=== PATIENT | male | born 1960 | race Caucasian/White ===

== ENCOUNTER → 2023-10-24 07:50 | Outpatient (CLI) | payer BC, SELFPAY ==
--- NOTE | ~2023-10-24 | MR_ITS ---
MRI of the lumbar spine Clinical History: Back pain Technique: Axial T2-weighted images, and sagittal T1-weighted, T2-weighted, and T2 fat-sat images wer e acquired. Findings: There is no fracture of the lumbar spine. There is 3 mm retrolisthesis of L2 over L3. No grijalva spicious bone marrow signal abnormality seen. At L1-L2, there is moderate to advanced degenerative disc narrowing. There is mild disc bulge and mod erate facet arthropathy. No central canal stenosis or definite neural foraminal narrowing. At L2-L3, there is moderate to advanced degenerative disc narrowing. There is mild disc bulge and mod erate facet arthropathy. No central canal stenosis. There is mild bilateral neural foraminal narrowin g. At L3-L4, there is minimal disc bulge with moderate facet arthropathy. No central canal stenosis or d efinite neural foraminal narrowing. At L4-L5, there is mild disc bulge and moderate to advanced facet arthropathy. No central canal steno sis. There is moderate to advanced right neural foraminal narrowing, and mild to moderate left neural foraminal narrowing. At L5-S1, there is mild disc bulge and moderate facet arthropathy. No central canal stenosis. There i s severe right neural foraminal narrowing, and mild to moderate left neural foraminal narrowing. Paravertebral soft tissues are unremarkable. Impression: [id number] degenerative spondylosis, as detailed above. 3 mm retrolisthesis of L2 over L3. Reviewed, dictated and finalized at [facility]. COORDINATOR Impression: [id number] degenerative spondylosis, as detailed above. 3 mm retrolisthesis of L2 over L3.
== END ==
PROVIDERS: PCP Family Medicine Sports Medicine; Visit Provider Nurse Practitioner
DX: M51.36 Other intervertebral disc degeneration, lumbar region (principal); M47.816 Spondylosis without myelopathy or radiculopathy, lumbar region; G89.29 Other chronic pain
CPT/HCPCS: 72148

== ENCOUNTER → 2023-10-24 08:12 | Outpatient (CLI) | payer BC, SELFPAY ==
--- NOTE | ~2023-10-24 | MR_ITS ---
MRI of the right shoulder Technique: Axial proton-density fat-sat images, coronal proton density fat-sat and T2 fat-sat images, and sagittal T1-weighted and T2 fat-sat images were acquired. Clinical History: Biceps tendinitis Findings: There is severe degenerative change of the AC joint, with prominent bony productive change of the distal clavicle, as well as mild bony productive change at the acromion. There is fluid in the joint space. There is mild extrinsic impingement by bony productive change of the distal clavicle on the supraspinatus tendon near the myotendinous junction region. Coracoclavicular, coracoacromial, an d coracohumeral ligaments appear intact. There is a 5 mm low to moderate grade articular surface partial tear at the very anterior, distal sup raspinatus tendon insertion. No high-grade partial or full-thickness tear seen. Infraspinatus tendon is intact, without partial or full-thickness tear. There is mild tendinosis. Subscapularis tendon is intact, with mild tendinosis. Tendon of long head of the biceps is intact. No definite labral tear identified. Inferior glenohumeral ligament is intact. No degenerative change or effusion of the glenohumeral join t. No fluid distention of the subacromial/subdeltoid bursa. No muscle atrophy or edema. Impression: 5 mm low to moderate grade articular surface partial tear at the very anterior, distal supraspinatus tendon insertion. Mild rotator cuff tendinosis. Severe AC joint degenerative change. Reviewed, dictated and finalized at [facility]. TICE COORDINATOR Impression: 5 mm low to moderate grade articular surface partial tear at the very anterior, distal supraspinatus tendon insertion. Mild rotator cuff tendinosis. Severe AC joint degenerative change.
== END ==
PROVIDERS: PCP Family Medicine Sports Medicine; Visit Provider Orthopaedic Surgery
DX: M75.21 Bicipital tendinitis, right shoulder (principal); M77.11 Lateral epicondylitis, right elbow; M75.111 Incomplete rotator cuff tear or rupture of right shoulder, not specified as traumatic; M19.011 Primary osteoarthritis, right shoulder
CPT/HCPCS: 73221

== ENCOUNTER 2024-02-20 08:07 | Outpatient (CLI) | payer BC, SELFPAY ==
--- NOTE | ~2024-02-20 | MR_ITS ---
MRI of the cervical spine Clinical History: Cervicalgia Technique: Axial T2-weighted and gradient images, and sagittal T1-weighted, T2-weighted, and STIR lindsey ges were acquired. Findings: There is no fracture and 5. There is 2-3 mm retrolisthesis of C5 over C6. No significant treva ne marrow signal abnormality seen. At C2-C3, there is no significant disc bulge or herniation. No spinal canal stenosis, cord compressio n, or neural foraminal narrowing. At C3-C4, there is no significant disc bulge or herniation. No spinal canal stenosis, cord compressio n, or neural foraminal narrowing. There is mild bilateral facet arthropathy. At C4-C5, there is mild disc osteophyte complex. There is bilateral facet arthropathy, left worse ana n right. There is left neural foraminal narrowing. Probable minimal right neural foraminal narrowing. No central canal stenosis or cord compression. At C5-C6, there is advanced degenerative disc narrowing, with disc osteophyte complex. There is mild canal stenosis without susanne cord compression. There is bilateral neural foraminal narrowing with mae ateral facet arthropathy. At C6-C7, there is minimal disc bulge. No central canal stenosis or cord compression. Probable minima l bilateral neural foraminal narrowing with mild bilateral facet arthropathy. Paravertebral soft tissues are unremarkable. Impression: Moderate degenerative spondylosis at C5-C6 and C4-C5, as detailed above. Mild degenerative change at the remainder of the cervical spine. Reviewed, dictated and finalized at [facility]. Impression: Moderate degenerative spondylosis at C5-C6 and C4-C5, as detailed above. Mild degenerative change at the remainder of the cervical spine.
--- NOTE | ~2024-02-20 | MR_ITS ---
MRI of the brain Clinical History: Headache Technique: Axial and sagittal T1-weighted images were acquired. These were followed by axial T2-weigh bret, diffusion weighted, gradient, and FLAIR images. Findings: There is no acute infarct, intracranial hemorrhage, or mass lesion. There are mild chronic white matter changes in the periventricular white matter bilaterally. Ventricles and subarachnoid spaces are unremarkable. Orbits are unremarkable. Paranasal sinuses and m astoid air cells are essentially clear. Major intracranial flow voids appear intact. Sagittal midline structures are intact. IMPRESSION: No acute infarct, intracranial hemorrhage, or mass lesion. Mild chronic microvascular ischemic changes. Reviewed, dictated and finalized at location .
== END 2024-02-20 08:08 ==
LOC: GOSHIMG 08:09
PROVIDERS: Visit Provider Family Medicine Sports Medicine
DX: M47.892 Other spondylosis, cervical region (principal); I67.82 Cerebral ischemia; G89.29 Other chronic pain
CPT/HCPCS: 70551; 72141

== ENCOUNTER 2024-08-28 10:05 | Outpatient (CLI) | payer BC, SELFPAY ==
--- NOTE | ~2024-08-28 | MR_ITS ---
EXAMINATION: MRA neck wo con DATE: 08/28/2024 11:17 INDICATION: Headache. Left shoulder pain. TECHNIQUE: Magnetic resonance angiography (MRA) of the neck was performed without intravenous contras t. Sequences included axial 2D-time of flight T1-weighted FSPGR, axial Inhance, and coronal T1-weight ed FSPGR without intravenous contrast. COMPARISON: None. FINDINGS: Right vertebral artery is dominant. There is no significant stenosis of the vertebral arteries. There is 0% stenosis of the proximal right internal carotid artery relative to normal distal artery lumen diameter (NASCET criteria). There is 0% stenosis of the proximal left internal carotid artery relati ve to normal distal artery lumen diameter. IMPRESSION: 1. 0% stenosis of the proximal internal carotid arteries relative to normal distal artery lumen diame ters (NASCET criteria). Reviewed, dictated and finalized at location A. RAL COUNSEL IMPRESSION: 1. 0% stenosis of the proximal internal carotid arteries relative to normal dis lesvia artery lumen diameters (NASCET criteria).
--- NOTE | ~2024-08-28 | MR_ITS ---
MRA HEAD History: Headache Technique: 3D time of flight MRA of the head is performed. Findings: The right and left distal vertebral arteries and the basilar and posterior cerebral arterie s are normal. Right and left distal internal carotid arteries and anterior and middle cerebral arteri es are normal. There is no aneurysm, stenosis, or occlusion. Impression: No occlusion, stenosis, or aneurysm. Reviewed, dictated and finalized at location . ETCAR REPAIRER Impression: No occlusion, stenosis, or aneurysm.
== END 2024-08-28 10:06 | disposition home or self-care (01) ==
LOC: GOSHIMG 10:06
PROVIDERS: Visit Provider Family Medicine Sports Medicine
DX: R51.9 Headache, unspecified (principal); M25.512 Pain in left shoulder; G89.29 Other chronic pain
CPT/HCPCS: 70544; 70547

== ENCOUNTER 2025-07-09 00:13 | Day surgery (SDC) | payer BC, SELFPAY ==
--- OUTSIDE RECORDS SUMMARY | 2025-06-29 05:40 | XMS_ITS ---
Author Organization 1 OF [facility] Address [address] [address] Care Team Providers Care Ladle Liner Name Role Phone Per Garza Primary Care Provider Unavail able Noam Claudia Unavailable [phone] Allergies Allergen (clinical drug ingredient) Drug/Non Drug Allergy documented on EMR Reaction Allergy Type Onset Date Status ciprofloxacin Ciprofloxacin Unknown Drug Allergy Active REASON FOR VISIT ingrown nail Medications Medication SIG (Take, Route, Frequency, Duration) Notes Start Date End Date Status Tamsulosin HCl 0.4 MG Capsule Oral; Duration: 90 Days Acti ve Celecoxib 200 MG Capsule Oral; Duration: 90 Days Active Ciclopirox 8 % Solution 1 application to affected toenails daily. Every weekend, remove medicine with nail malay remover. Topical Once a day; Duration: 120 days 06/29/2025 Active Omeprazole 20 MG Capsule Delayed Release Oral; Duration: 90 Days A ctive Atenolol Active Lisinopril 10 MG Tablet Oral; Duration: 90 Days Active Vital Signs Height 69 in 06/29/2025 Weight 170 lbs 06/29/2025 BMI 25.1 kg/m2 06/29/2025 Encounters Encounter Location Date Provider Diagnosis 1 OF [facility] [address] [address] 06/29/2025 Claudia Santacruz Onychomycosis B35.1 ; Ingrown toenail L60.0 and Pain around toenail, right foot M79.674 Assessments Encounter Date Diagnosis (ICD Code) Assessment Notes Treatment Notes Treatment Clinical Notes Section Notes 06/29/2025 Onychomycosis (ICD-10 - B35.1) Evaluation today included a review of medical history, review of systems, discussion of exam findings, and review of diagnoses and treatment options. I explained that some of the changes to the nail could be residual from his old toenail plate that still needs to grow out. We discussed the option of doing another round of oral antifungal medication. He would like to see how the nail grows out and will call as needed. 06/29/2025 Ingrown toenail (ICD-10 - L60.0) Discussed ingrown toenail condition and explained in detail conservative and surgical options of care including debridement / slant back procedure vs nail avulsion vs matrixectomy. Discussed pros and cons of each procedure including temporary relief vs more permanent relief with matrixectomy procedure but longer healing time. Patient requested only debridement / slant back procedure today w/o local anesthesia. Antibiotic ointment and Band-Aid were applied today. Patient understands this procedure will likely provide only temporary relief and was encouraged to consider avulsion or matrixectomy if condition recurs. 06/29/2025 Pain around toenail, right foot (ICD-10 - M79.674) Plan Of Treatment Medication Medication Name Sig Start Date Stop Date Notes Ciclopirox 8 % Solution 1 application to affected toenails daily. Every weekend, remove medicine with nail malay remover. Topical Once a day; Duration: 120 days 06/29/2025 Treatment Notes Assessment Notes Onychomycosis Evaluation today inc luded a review of medical history, review of systems, discussion of exam findings, and review of diagnoses and treatment options. I explained that some of the changes to the nail could be residual from his old toenail plate that still needs to grow out. We discussed the option of doing another round of oral antifungal medication. He would like to see how the nail grows out and will call as needed. Ingrown toenail Discussed ingrown to enail condition and explained in detail conservative and surgical options of care including debridement / slant back procedure vs nail avulsion vs matrixectomy. Discussed pros and cons of each procedure including temporary relief vs more permanent relief with matrixectomy procedure but longer healing time. Patient requested only debridement / slant back procedure today w/o local anesthesia. Antibiotic ointment and Band-Aid were applied today. Patient understands this procedure will likely provide only temporary relief and was encouraged to consider avulsion or matrixectomy if condition recurs. Next Appt Details Follow Up: prn, Reason: Procedure Notes * Category Sub-Category Detail Notes PALLIATIVE FOOT CARE: Nail debride (95653): Slan t back debridement of the right hallux nail History and Physical Notes * HPI (History of Present Illness) Category Sub-Category Detail Notes Category Not es Primary reason for visit: Recurrent issue: 65 y/o male RTO for an ingrown toenail right hallux medial border. At the last visit a slant back was performed and discussed possible nail avulsion/matrixectomy. Today he reports that there is still pain when in shoes or even with the sheets touching the toe. Patient also states that the nail has some discoloration. SID assisting with visit: HPI/Rooming: Kathi Chart Prep Kathi Examination Category Sub-Category Detail Notes Category Not es General Examination Mental status: Cooperative, Oriented to person, place and time, Mood and affect: normal, Judgement and intellect: normal with appropriate response to questions Shoes today: New Balance tennis s hoes Exam unchanged from prior visit: with no significant changes in appearance or condition of feet, excluding the following findings noted on exam today: There is very minimal white discoloration noted to the left third toenail. There is some residual yellowish-brown discoloration noted to the distal aspect of the right hallux nail. Minimal thickening of the toenail noted. The medial corner of the left hallux nail is incurvated and painful. No surrounding erythema, no drainage, no acute signs of infection. Constitutional / Appearance: No acute di stress , Well nourished, Appropriate personal hygiene Progress Notes * SANCHEZFamiliaDOB:1960 (65 yo M)Acc No.[id number]:06/29/2025 Progress Notes Patient: Familia Naik Provider: Fidencio Santacruz DPM :1960 A ge:65 Y S ex:Male Date:06/29/2025 Address:[address] [place], [place] [id number] Pcp:Per Garza Subjective: * Chief Complaints: * I ngrown nail * HPI: Orquidea Hayes assisting with visit:: Chart Prep Arianna espinoza. HPI/Rooming: Arianna mac reason for visit:: Recurrent issue: [age] y/o male RTO for an ingrown toenail right hallux medial border. At the last visit a slant back was performed and discussed possible nail avulsion/matrixectomy. Today he reports that there is still pain when in shoes or even with the sheets touching the toe. Patient also states that the nail has some discoloration. * Medical History: Arthritis High Blood Pressure High Cholesterol Gastroesophageal reflux disease (GERD) Medical History Verified * Medications: T akingAtenolol Lisinopril 10 MG Tablet Oral Tamsulosin HCl 0.4 MG Capsule Oral Celecoxib 200 MG Capsule Oral Omeprazole 20 MG Capsule Delayed Release Oral Medication List reviewed and reconciled with the patientTaking Atenolol Taking Lisinopril 10 MG Tablet Oral Taking Tamsulosin HCl 0.4 MG Capsule Oral Taking Celecoxib 200 MG Capsule Oral Taking Omeprazole 20 MG Capsule Delayed Release Oral Medication List reviewed and reconciled with the patient * Allergies: C iprofloxacinyesAllergies Verified. Objective: * Vitals: W t:170lbs, Wt-k.11 kg, Ht: 69 in, BMI:25.1Index. * Examination: G eneral Examination: Constitutional / Appearance: N o acute distress , Well nourished, Appropriate personal hygiene. Mental status: C ooperative, Oriented to person, place and time, Mood and affect: normal, Judgement and intellect: normal with appropriate response to questions. Shoes today: N ew Balance tennis shoes. Exam unchanged from prior visit: w ith no significant changes in appearance or condition of feet, excluding the following findings noted on exam today: There is very minimal white discoloration noted to the left third toenail. There is some residual yellowish-brown discoloration noted to the distal aspect of the right hallux nail. Minimal thickening of the toenail noted. The medial corner of the left hallux nail is incurvated and painful. No surrounding erythema, no drainage, no acute signs of infection.. Assessment: * Assessment: 1. O nychomycosis - B35.1 (Primary) 2 . I ngrown toenail - L60.0 3 . P ain around toenail, right foot - M79.134 Plan: * Treatment: 2. I ngrown toenail Notes: Discussed ingrown toenail condition and explained in detail conservative and surgical options of care including debridement / slant back procedure vs nail avulsion vs matrixectomy. Discussed pros and cons of each procedure including temporary relief vs more permanent relief with matrixectomy procedure but longer healing time. Patient requested only debridement / slant back procedure today w/o local anesthesia. Antibiotic ointment and Band-Aid were applied today. Patient understands this procedure will likely provide only temporary relief and was encouraged to consider avulsion or matrixectomy if condition recurs. * Procedures: P ALLIATIVE FOOT CARE:: Nail debride (40476): S lant back debridement of the right hallux nail. * Procedure Codes: 1 1720 DEBRIDE NAIL, 1-5 * Follow Up: p rn Billing Information: * Procedure Codes: 77120 DEBRIDE NAIL, 1-5. * Electronic signature of Jyoti Santacruz DPM on 07/09/2025 at 12:16 AM CDT Sign off status: Pending * Provider: Fidencio Santacruz DPM Date: Generated for Tita doss/Tesfaye/Madhu on: 12:16 AM CDT
[2025-07-02 12:34] VITALS: BMI 26.2
--- NOTE | 2025-07-02 12:47 | PC.NURSE ---
[facility] has started construction of its new state of the art ER which will open Spring 2026. With this, we anticipate parking may be a challenge for some our surgical patients and families. Parking spaces are limited but are available for all Surgical, obstetrics, and ER patients sharing this lot. If you arrive and find you are having a hard time finding a parking space, please note that we understand the challenges, please drive around the hospital and park near Hospital Entrance 1. When you enter this entrance, you can ask a volunteer to direct or take you back to the surgical waiting area to check in. We appreciate everyone?s understanding of these expected challenges while we build for your future. Report to the Outpatient Waiting Room, entrance under the green pavilion located off [address], at time _0745_ on date __. Planned Procedure Time: _0945_.? Time changes happen often and if your time is changed the preop area will call you the afternoon before. - You and your visitor will be asked to self-screen and do not enter if you have any COVID symptoms. Please call surgeon if you need to reschedule. - A mask is optional within the hospital at this time. Patients may have clear liquids (water, carbonated beverages, clear teas, apple juice) until 3 hours prior to surgery with a maximum of 20 ounces. - No food from midnight until time of surgery and no smoking, or chewing tobacco (or any form of nicotine). No chewing gum, candy or mints. Take only the following medications with a SIP of water on the morning of surgery: __Atenolol_ DO NOT STOP ANY OF YOUR OTHER PRESCRIPTION MEDICATIONS PRIOR TO SURGERY EXCEPT THE FOLLOWING Hold all vitamins and supplements for 3 days per anesthesiologist. Medications to discontinue per physician Patient holding Aspirin and Celebrex per Dr's orders. Date to take last dose Please no make-up, nail slovenian, hairspray, perfume, deodorant, or body powder the day of surgery.? No jewelry (including any body piercings) or valuables the day of surgery, leave them at home.? Please take a shower or bath the night before, or the morning of, surgery with an antibacterial soap.? Wear comfortable, loose fitting clothing.? - Jewelry must be removed prior to entering the operating room.? Rings and piercings that are not removed may be cut off. - The hospital will not accept responsibility for valuables.? - Please leave all valuables, including medications, at home the day of surgery. If you are going home after surgery, a licensed bellman driver must drive you home.? - NO public transportation without another adult if you receive anesthesia. - We recommend that an adult stay with you for 24 hours following discharge. - We also recommend that you do not drive, make important decision, drink alcoholic beverages, or take any drugs that were not prescribed by your health care provider for at least 24 hours after your discharge time. Follow any additional instructions given to you from your surgeon. Telephone instructions given to __Tom__and asked if any additional questions and then verbalized understanding. Patient advised to call surgeon office or pre surgery nurse liaison [phone] if any additional questions.
--- NOTE | 2025-07-06 07:36 | PM.HPGS ---
History of Present Illness History of Present Illness Consent: Risks, benefits, and alternatives have been discussed and questions answered. Patient agrees to proceed with procedure. Chief complaint: elevated PSA Narrative: Familia Sanchez is a 65 year old male with elevated PSA: 05/2025: ?Care transferred to Dr. Soria after Dr. Gaona care home ?a. LUTS: Empiric trial Gemtesa -> near retention ?Myrbetriq: too expensive ?Non-compliant with Urocuff and UDS ?b. Elevated PSA: 04/2025: PSA: 4.0 ?mpMRI Prostate: - volume: 20.6gm ?- PI-RADS 4: Right post.-med. TZ @apex ?- PI-RADS 4: Left lat. PZ @ mid prostate Review of Systems Review of Systems: All systems reviewed & are unremarkable except as noted in HPI and below PMFSH Social History Social History Smoking packs per day: 1 Smoking cigarettes per day: 20.0 Years smoked: 35 Smoking pack-years: 35.00 Smoking status: Former smoker Tobacco type: cigarettes Smoking end date: 07/02/17 Alcohol intake: current Drinks per week: 20 Living arrangements: with roommate(s) Spiritual care concerns: No Meds Home Medications and Allergies Home Medications ?Medication ?Instructions ?Recorded ?Confirmed ?Type ascorbic acid (vitamin C) 500 mg 500 mg PO DAILY 07/02/25 07/02/25 History tablet (C-500) aspirin 81 mg tablet,delayed 81 mg PO DAILY 07/02/25 07/02/25 History release (Adult Low Dose Aspirin) atenolol 25 mg tablet 25 mg PO DAILY 07/02/25 07/02/25 History atorvastatin 40 mg tablet 40 mg PO QPM 07/02/25 07/02/25 History celecoxib 200 mg capsule 200 mg PO DAILY 07/02/25 07/02/25 History gabapentin 300 mg capsule 300 mg PO Q8H 07/02/25 07/02/25 History lisinopril 20 mg tablet 40 mg PO DAILY 07/02/25 07/02/25 History multivitamin (Daily Multi-Vitamin 1 tablet PO DAILY 07/02/25 07/02/25 History tablet) omega 9-ocu-gcp-fish oil 1,200 mg 1 cap PO DAILY 07/02/25 07/02/25 History (144 mg-216 mg) capsule (Fish Oil) omeprazole 20 mg capsule,delayed 20 mg PO DAILY 07/02/25 07/02/25 History release tadalafil 5 mg tablet 5 mg PO DAILY 07/02/25 07/02/25 History vitamin E 268 mg (400 unit) capsule 268 mg PO DAILY 07/02/25 07/02/25 History Allergies Allergy/AdvReac Type Severity Reaction Status Date / Time ciprofloxacin (From Cipro) Allergy Severe Hives Verified 07/02/25 12:27 Exam Const: General: no acute distress Resp: Effort & Inspection: normal respiratory effort GI: Inspection: non-distended GI Palp: No abdominal tenderness and No Guarding due to palpation present (GI) Auscultation: normal bowel sounds Assessment and Plan Assessment and plan (1) Elevated PSA: Code(s): R97.20 - Elevated prostate specific antigen [PSA] Status: Acute Assessment and Plan: Transrectal ultrasound guided fusion biopsy prostate
--- OUTSIDE RECORDS SUMMARY | 2025-07-09 00:16 | XMS_ITS | Patient Health Record ---
Author Organization [facility] OF [facility] Address [address] [place] [address] Care Team Providers Care Head Refrigeration Engineer Name Role Phone Per Garza Primary Care Provider Unavail able Claudia Santacruz Unavailable [phone] [place] Atwood Unavailable [phone] Allergies Allergen (clinical drug ingredient) Drug/Non Drug Allergy documented on EMR Reaction Allergy Type Onset Date Status ciprofloxacin Ciprofloxacin Unknown Drug Allergy Active Reason For Referral No Information Medications Medication SIG (Take, Route, Frequency, Duration) Notes Start Date End Date Status Tamsulosin HCl 0.4 MG Capsule Oral; Duration: 90 Days Acti ve Celecoxib 200 MG Capsule Oral; Duration: 90 Days Active Lisinopril 10 MG Tablet Oral; Duration: 90 Days Active Ciclopirox 8 % Solution 1 application to affected toenails daily. Every weekend, remove medicine with nail estonian remover. Topical Once a day; Duration: 120 days 06/29/2025 Active Omeprazole 20 MG Capsule Delayed Release Oral; Duration: 90 Days A ctive Atenolol Active Social History Tobacco Use: Social History Observation Description Date Details (start date - stop date) Former Smoker NA - NA Social History Tobacco Use: Social Info Question Answer Notes Tobacco Control (Standard) Tobacco use: Former smoker How long has it been since you last smoked? 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) Plantar fasciitis, bilateral (M72.2) Active confirmed Vital Signs Height 69 in 06/29/2025 Weight 170 lbs 06/29/2025 BMI 25.1 kg/m2 06/29/2025 Encounters Encounter Location Date Provider Diagnosis [address] OF [facility] [place] [address] [facility] [address] [address] 06/29/2025 Claudia Santacruz Onychomycosis B35.1 ; Ingrown toenail L60.0 and Pain around toenail, right foot M79.674 1 OF [facility] [place] [address] [facility] [address] [address] 07/29/2024 Denver Atwood Onychomycosis B35.1 1 OF [facility] [place] [address] [facility] [address] 10/29/2024 Denver Atwood Onychomycosis B35.1 [facility] OF [facility] [place] [address] [facility] [address] 04/20/2025 Claudia Santacruz Onychomycosis B35.1 ; Ingrown toenail L60.0 and Pain around toenail, right foot M79.674 Assessments Encounter Date Diagnosis (ICD Code) Assessment Notes Treatment Notes Treatment Clinical Notes Section Notes 07/29/2024 Onychomycosis (ICD-10 - B35.1) Evaluation today included a review of medical history, review of systems, discussion of exam findings, and review of diagnoses and treatment options. I reviewed the results of the nail biopsy which indicated presence of fungus and recommended proceeding with oral antifungal for best results. Discussed and dispensed literature regarding terbinafine side effects and the dosing instructions describing the alternate dosing schedule of one week per month. Advised follow-up visits every 3-4 months for evaluation of effectiveness of the medication. Patient advised to contact office with any concerns or to report any side effects. All questions were answered and the patient desires to proceed with treatment. (Rx Terbinafine 250mg, one tab QD x 7 days, repeat monthly x 3 months, dispense 21 tabs, No refills) 10/29/2024 Onychomycosis (ICD-10 - B35.1) Evaluation today included a review of medical history, review of systems, discussion of exam findings, and review of diagnoses and treatment options. I reviewed the diagnosis and treatment plan with the patient and advised the condition seems to be improving. I recommended continuation of oral terbinafine, taken one week per month for an additional 3 months 04/20/2025 Ingrown toenail (ICD-10 - L60.0) Discussed ingrown [...] consider avulsion or matrixectomy if condition recurs. 04/20/2025 Onychomycosis (ICD-10 - B35.1) Evaluation today included [...] out and will call as needed. 06/29/2025 Onychomycosis (ICD-10 - B35.1) Evaluation today [...] consider avulsion or matrixectomy if condition recurs. 04/20/2025 Pain around toenail, right foot (ICD-10 - M79.674) 06/29/2025 Pain around toenail, right foot (ICD-10 - M79.674) Plan Of Treatment No Information Insurance Providers Payer Name Payer Address Payer Phone Subscriber Number Group Number Insured Name Patient Relationship to Insured Coverage Start Date Coverage End Date [facility] [address] [place] [address] [id number] Familia Sanchez Self - patient is the insured Medical (General) History Medical History History ICD Code Arthritis High Blood Pressure High Cholesterol Gastroesophageal reflux disease (GERD)
--- OUTSIDE RECORDS SUMMARY | 2025-07-09 00:17 | XMS_ITS | Encounter Summary ---
Author Organization [facility] Address [facility] [place] [address] Care Team Providers Care Optical Instrument Specialist Name Role Phone Charlie Machuca MD Primary Care Provider [phone] Sebastien Boone MD Primary Care Provider [phone] Per Garza MD Primary Care Provider [phone] Encounter Details Date Type Department Care Team (Late st Contact Info) Description 04/22/2018 Abstract [facility] CONVERSION [address] [place] [address] , Generic Conversion, Social History Tobacco Use Types Packs/Day Years Used Date Smoking Tobacco: Never Assessed Sex and Gender Information Value Date Recorded Sex Assigned at Male 12/05/2018 4:58 PM CDT Legal Sex Male 4:58 PM CDT Gender Identity Male 12/05/2018 4:58 PM CDT Sexual Orientation Straight 12/05/2018 4: 58 PM CDT documented as of this encounter Plan of Treatment Upcoming Encounters Date Type Department Care Team (Late Contact Info) Description 07/15/2025 3:00 PM CDT Office Visit [facility] - [facility] [address], [address] [place] [address] Nikky Morton APRN [address] [place] [address] 10/05/2025 9:00 AM EQUIPMENT TECHNICIAN Office Visit [facility] [address] [place] [address] Per Garza MD [address] [place] [address] 03/31/2026 8:20 AM CDT Office Visit [facility] - [facility] [address] [place] [address] Trey Williamson DO [address] [place] [address] documented as of this encounter Visit Diagnoses Not on filedocumented in this encounter Additional Health Concerns Infection Onset Date Last Indicated Resolved Time COVID-19 Rule Out 03/17/2020 03/17/2020 03/18/2020 11:36 AM CDT COVID-19 Rule Out 01/06/2024 01/06/2024 01/06/2024 10:11 AM CDT documented as of this encounter Care Teams Optical Instrument Specialist Relationship Specialty Start Date End Date Charlie Machuca MD PCP - General FAMILY PRACTICE 07/26/18 09/24/18 Sebastien Boone MD PCP - General FAMILY PRACTICE 09/25/18 04/17/19 Per Garza MD [address] [place] [address] PCP - General FAMILY PRACTICE 04/18/19 documented as of this encounter
--- OUTSIDE RECORDS SUMMARY | 2025-07-09 00:17 | XMS_ITS | Encounter Summary ---
Author Organization [facility] Address [address] [place] [address] Care Team Providers Care Cyber Security Architect Name Role Phone Per Garza MD Primary Care Provider [phone] Encounter Details Date Type Department Care Team (Late st Contact Info) Description 02/01/2024 Definienst Message [facility] [address] [place] [address] Per Garza MD [address] [place] [address] Physicians Results Form Social History Tobacco Use Types Packs/Day Years Used Date Smoking Tobacco: Former Cigarettes 987 - 2016 Passive Smoke Exposure: Past Smokeless Tobacco: Never Comments:na Alcohol Use Standard Drinks/Week Comments Yes 23.3 (1 standard drink = 0.6 oz pure alcohol) 2-3 beers daily AUDIT-C Answer Date Recorded Frequency of Alcohol Consumption Never 07/31/2018 Average Number of Drinks Not on file 018 Frequency of Binge Drinking Not on file 03/2018 PHQ-2 Answer Date Recorded Patient Health Questionnaire-2 Score 0 01/08/2024 Sex and Gender Information Value Date Recorded Sex Assigned at Male 12/05/2018 4:58 PM CDT Legal Sex Male 4:58 PM CDT Gender Identity Male 12/05/2018 4:58 PM CDT Sexual Orientation Straight 12/05/2018 4: 58 PM CDT documented as of this encounter Plan of Treatment Upcoming Encounters Date Type Department Care Team (Late st Contact Info) Description 07/15/2025 3:00 PM CDT Office Visit [facility] - [facility] [address] [place] [address] Nikky Morton APRN [address] [place] [address] 10/05/2025 9:00 AM SPARK PLUG TESTER Office Visit [facility] [address] [place] [address] Per Garza MD [address] [facility] [address] [place] [address] 03/31/2026 8:20 AM CDT [facility] [address] [place] [address] Trey Williamson DO [address] [place] [address] documented as of this encounter Visit Diagnoses Not on filedocumented in this encounter Additional Health Concerns Assessment Noted Time PHQ-9 Depression Total Score: 0 11/25/19 22 7:36 AM SPARK PLUG TESTER documented as of this encounter Care Teams Cyber Security Architect Relationship Specialty Start Date End Date Per Garza MD [address] [facility] [facility] [address] [place] [address] PCP - General FAMILY PRACTICE 04/18/19 documented as of this encounter
--- OUTSIDE RECORDS SUMMARY | 2025-07-09 00:17 | XMS_ITS | Encounter Summary ---
Author Organization [facility] Address [address] [place] [address] Care Team Providers Care Inspector Plating Name Role Phone Per Garza MD Primary Care Provider [phone] Encounter Details Date Type Department Care Team (Late st Contact Info) Description 02/11/2024 WealthTouch Message [facility] [address] [place], [place] [id number] Per Garza MD [address] [address] Atenolol Social History Tobacco Use Types Packs/Day Years [...] PM CDT documented as of this encounter Progress Notes * Nicole Gutierrez RN - 02/12/2024 1:31 PM CDT Any new orders or just to continue the Atenolol? documented in this encounter Plan of Treatment Upcoming Encounters Date Type Department Care Team (Late st Contact Info) Description 07/15/2025 3:00 PM CDT [facility] [address] [place] [address] Nikky Morton, SENIOR CARE SPECIALIST [address] [place] [address] 10/05/2025 9:00 AM STRAIGHT RULING MACHINE OPERATOR Office Visit [address] [place] [address] Per Garza MD [address] [facility] [address] [place] [address] 03/31/2026 8:20 AM CDT Office Visit [facility] [address] [place] [address] Trey Williamson DO [address] [facility] [address] [place] [address] documented as of this encounter Visit Diagnoses Not on filedocumented in this encounter Additional Health Concerns Assessment Noted Time PHQ-9 Depression Total Score: 0 11/25/19 7:36 AM STRAIGHT RULING MACHINE OPERATOR documented as of this encounter Care Teams Inspector Plating Relationship Specialty Start Date End Date Per Garza MD [address] [facility] [address] [place] [address] PCP - General FAMILY PRACTICE 04/18/19 documented as of this encounter
--- OUTSIDE RECORDS SUMMARY | 2025-07-09 00:17 | XMS_ITS | Clinical Summary ---
Author Organization [facility] Address [address] [place] [address] Care Team Providers Care Pulp Press Tender Name Role Phone Per Garza MD Primary Care Provider [phone] Allergies Active Allergy Reactions Criticality Noted Date Comments Ciprofloxacin Rash Low 03/11/2020 Medications aspirin EC (ASPIRIN EC) 81 MG tablet Take by mouth daily. 04/24/20 13 Active multi vitamin/minerals tablet Take 1 tablet by mouth daily. Active fish oil 1000 MG Cap capsule Take 1 capsule (1,000 mg total) by mouth daily. Active BONE STIMULATOR, DME,Indications:C ervical spine instability Wear 4 hours daily. Can break up into multiple sessions totaling 4 hours. 1 Device 12/12/19 23 Active fluticasone propionate (FLONASE) 50 MCG/ACT nasal sprayIndications: Allergic rhinitis due to pollen, unspecified seasonality 1 spray by Nasal route daily. 16 g 6 03/12/20 24 Active clotrimazole-beta methasone (LOTRISONE) creamIndications: Rash Apply topically 2 (two) times daily. 45 g 04/16/20 24 Active tamsulosin (FLOMAX) 0.4 MG CapIndications:Be nign prostatic hyperplasia without lower urinary tract symptoms TAKE 1 CAPSULE DAILY 90 capsule 2 06/23/20 24 Active celecoxib (CELEBREX) 200 MG capsuleIndication s:Degenerative disc disease, lumbar Take 1 capsule (200 mg total) by mouth daily. 90 capsule 2 08/29/20 24 Active lisinopril (PRINIVIL) 20 MG tabletIndications :Essential hypertension Take 1 tablet (20 mg total) by mouth daily. 90 tablet 3 04/09/20 25 Active gabapentin (NEURONTIN) 100 MG tablet Take 3 tablets (300 mg total) by mouth every evening. Active omeprazole (PRILOSEC) 20 MG capsuleIndication s:Gastroesophagea l reflux disease, unspecified whether esophagitis present Take 1 capsule (20 mg total) by mouth daily. 90 capsule 2 05/05/20 25 Active ALPRAZolam (XANAX) 0.25 MG tabletIndications :Anxiety Take 1 tablet (0.25 mg total) by mouth 3 (three) times daily as needed for Anxiety. 15 tablet 06/10/20 25 Active atorvastatin (LIPITOR) 40 MG tabletIndications :Mixed hyperlipidemia TAKE 1 TABLET NIGHTLY AT BEDTIME 90 tablet 1 06/22/20 25 Active atenolol (TENORMIN) 25 MG tabletIndications :Essential hypertension TAKE 1 TABLET DAILY 90 tablet 1 06/22/20 25 Active ALPRAZolam (XANAX) 0.25 MG tabletIndications :Anxiety Take 1 tablet (0.25 mg total) by mouth 3 (three) times daily as needed for Anxiety. 15 tablet 09/03/20 24 2024 Discontinued(R eorder) atorvastatin (LIPITOR) 40 MG tabletIndications :Mixed hyperlipidemia TAKE 1 TABLET NIGHTLY AT BEDTIME 90 tablet 03/25/20 25 2024 Discontinued atenolol (TENORMIN) 25 MG tabletIndications :Essential hypertension TAKE 1 TABLET DAILY 90 tablet 03/25/20 25 2024 Discontinued Active Problems Problem Noted Date Diagnosed Date Bilateral medial epicondylitis of elbow joint Spinal stenosis of cervical region 01/28/2025 Other cervical disc degenera tion, unspecified cervical region 01/28/2025 Other cervical disc displace ment, unspecified cervical region 01/28/2025 Foraminal stenosis of cervical region 01/28/2025 Lumbar radiculopathy 01/28/2025 Radiculopathy, lumbar region 10/08/2024 Foraminal stenosis of lumbosacral region 025 Foraminal stenosis of lumbar region 04/07/2024 Facet arthropathy, lumbar 01/02/2024 Other intervertebral disc degeneration, lumbar r egion 01/02/2024 Arthritis of right acromioclavicular joint 11/23 Acute pain of left shoulder 11/23/2023 Assessment & Plan (11/23/2023 8:09 AM BLOW MOLDING MACHINE OPERATOR): Recommendation at this time: went over the risks, benefits as well as the alternatives. He received a steroid injection to both shoulders today. Patient will be seen back if needed. Chronic left shoulder pain 11/23/2023 Rotator cuff arthropathy of left shoulder 2023 Incomplete tear of right rotator cuff 11/23/2023 Sacroiliitis 10/05/2023 Facet hypertrophy of lumbar region 10/05/2023 Chronic midline low back pain without sciatica 0 10/05/2023 Degenerative disc disease, lumbar 10/05/2023 Lateral epicondylitis, right elbow 06/24/2023 Biceps tendinitis of right upper extremity 05/09 Assessment & Plan (08/17/2023 10:06 AM BLOW MOLDING MACHINE OPERATOR): Recommendation at this time: Today we will administer a steroid shot to the shoulder. We will provide him some physician-directed exercises. If it's not any better in two weeks, he can give us a watkins'll and we will get him set up for an MRI. Assessment & Plan (06/24/2023 2:30 PM CDT): Recommendation at this time, we'll try Voltaren gel. We'll try a steroid shot to the lateral epicondyle, and some physician-directed exercises. He will look at possibly a tennis elbow strap. We'll see him back in six weeks if needed. Assessment & Plan (05/09/2023 3:43 PM CDT): Failure physical therapy, anti-inflammatories, activity modification. We'll have him get set up for an MRI. We'll see him back after the MRI. Acid reflux 04/10/2023 History of colonic polyps 04/10/2023 Overview (04/10/2023): Added automatically from request for surgery [id number] Gastritis 04/10/2023 Overview (04/10/2023): Added automatically from request for surgery [id number] Rotator cuff impingement syndrome of right shoul jessica 05/10/2021 History of tobacco abuse 07/28/2020 Nicotine dependence, cigaret patrick, with other nicotine-induced disorders 07/28/2020 Ex-smoker 08/02/2018 Solitary pulmonary nodule 08/02/2018 Temporary low platelet count 05/04/2014 Hypertension 03/14/2013 Hyperlipidemia 03/14/2013 Resolved Problems Problem Noted Date Diagnosed Date Resolved Date Encounter for screening for lung cancer 08/02/2018 06/04/2020 Encounters Date Type Department Care Team Description 05/27/2025 9:40 AM CDT - 05/27/2025 10:00 AM CDT Surgery [facility] [place] [address] [id number] Gayatri Sarkar MD INJECTION EPIDURAL STEROID CERVICAL c56 05/27/2025 9:03 AM CDT - 05/27/2025 9:59 AM CDT Hospital Encounter [facility] [place] [address] [id number] Gayatri Sarkar MD Discharge Disposition: Home or Self Care (Routine Discharge) 05/27/2025 Travel 04/20/2025 Scan [employer] INFO SRVCS Scanned, [facility] 04/14/2025 9:20 AM CDT Office Visit [facility] Multispecialty Care - [address], [address] [place] [address] Katie Rooney MD Follow Up 04/14/2025 Travel from Last 3 Months Immunizations Immunization Administration Dates Next Due FLUCELVAX (ccIIV3, TRIVALENT, 0.5mL) 06/03/2024 Fluzone 6 Months+ Quad (0.5 mL Prefilled Syringe) 11/12/2020,07/31/2019 Influenza Adult (Generic) 07/26/2023,07/24/2022, 06/30/2021 MODERNA COVID-19 BIVALENT (1 2+), MRNA, LNP-S, PF 07/24/2022 MODERNA COVID-19 (12+) MRNA, LNP-S, PF, 100 MCG/ 0.5 ML DOSE 01/06/2021,12/09/2020 MODERNA COVID-19 (CREDIT COLLECTIONS REP TINA KASHMIR), MRNA, LNP-S, PF, 50 MCG/ 0.25 ML DOSE 04/04/2022,08/10/2021 Shingrix 06/30/2021,04/25/2021 Tdap (Adacel) 03/30/2025 Tdap (Generic) 03/26/2014 Family History Medical History Relation Comments Heart Disease Father Hypertension Father Cancer Maternal Aunt Cancer Maternal Grandfather Heart Disease Mother Hypertension Mother Stroke Mother Diabetes Paternal Grandfather Diabetes Paternal Grandmother Cancer Paternal Uncle Relation Status Comments Father Maternal Aunt Alive Maternal Grandfather Mother Paternal Grandfather Paternal Grandmother Alive Paternal Uncle Alive Social History Tobacco Use Types Packs/Day Years Used Date Smoking Tobacco: Former Cigarettes 7 2016 Passive Smoke Exposure: Past Smokeless Tobacco: Never Tobacco Cessation:Counseling Given: Yes Comments:na Alcohol Use Standard Drinks/Week Comments Yes 35 (1 standard drink = 0.6 oz pu re alcohol) 2-3 beers daily AUDIT-C Answer Date Recorded Frequency of Alcohol Consumption Never 07/31/2018 Average Number of Drinks Not on file 018 Frequency of Binge Drinking Not on file 03/2018 PHQ-2 Answer Date Recorded Patient Health Questionnaire-2 Score 0 04/14/2025 Sex and Gender Information Value Date Recorded Sex Assigned at Male 12/05/2018 4:58 PM CDT Legal Sex Male 4:58 PM CDT Gender Identity Male 12/05/2018 4:58 PM CDT Sexual Orientation Straight 12/05/2018 4: 58 PM CDT Last Filed Vital Signs Vital Sign Reading Time Taken Comments Blood Pressure 150/88 05/27/2025 9:53 AM CDT Pulse 62 05/27/2025 9:53 AM CDT Temperature 36.5 C (97.7 F) 05/27/2025 9:16 AM CDT Respiratory Rate 20 05/27/2025 9:53 AM CDT Oxygen Saturation 98% 05/27/2025 9:53 AM CDT Inhaled Oxygen Concentration - - Weight 79.4 kg (175 lb) 05/27/2025 9:16 AM CDT Height 175.3 cm (5' 9) 05/27/2025 9:16 AM CDT Body Mass Index 25.84 05/27/2025 9:16 AM CDT Plan of Treatment Upcoming Encounters Date Type Department Care Team (Late st Contact Info) Description 07/15/2025 3:00 PM CDT [facility] [address] [facility], [address] [place] [address] Nikky Morton APRN [address] [place] [address] 10/05/2025 9:00 AM BLOW MOLDING MACHINE OPERATOR Office Visit [facility] [address] [place] [address] Per Garza MD [address] [facility] [address] [place] [address] 03/31/2026 8:20 AM CDT Office Visit [facility] [address] [facility] [address] [facility] [place] [address] Trey Williamson DO [address] [facility] [address] [place] [address] Health Maintenance Due Date Last Done Comments Hepatitis C 1979 Pneumococcal Vaccine: 50+ Years (1 of 2 - PCV) 01/21/1980 RSV Immunization or 60+ Years (1 - Risk 60-74 years 1-dose series) 2021 Lung Cancer Screening 02/24/2024 02/23/2023 , 12/26/2018, 05/29/2017 Influenza Adult (#1) 2025 06/03/2024, 07/26/2023, 07/24/2022, Additional history exists Annual Physical 03/30/2026 03/30/2025 Colorectal Cancer Screening Colonoscopy (10 Years) 04/24/2033 04/24/2023, 04/24/2023, 03/19/2020, Additional history exists DTaP, Tdap and Td Vaccines (3 - Td or Tdap) 03/30/2035 03/30/2025, 03/26/2014 Zoster Vaccines Completed 06/30/2021, 04/25/2021 COVID-19 Vaccine Completed 06/03/2024, 10/2022, 07/24/2022, Additional history exists PHQ-2 (Physician [place]) Completed 04/14/2025 Hepatitis A Vaccines Aged Out No long er eligible based on patient's age to complete this topic Meningococcal B Vaccine Aged Out No l onger eligible based on patient's age to complete this topic Meningococcal Vaccine Aged Out No sandra fernanda eligible based on patient's age to complete this topic RSV Immunizations Under 20 Months Aged Out No longer eligible based on patient's age to complete this topic Procedures Procedure Name Priority Date/Time Associated Diagnosis Comments NJX INTERLAMINAR CRV/THRC 05/27/2025 9:38 AM CDT Spinal stenosis of cervical region XR PAIN CLINIC C-ARM Today 05/27/2025 9:08 AM CDT COLONOSCOPY Routine 04/24/2023 12:[address] CHEST WO CONT LOW DOSE Routine 02/23/2023 12:00 AM CDT Nicotine dependence, cigarettes, with other nicotine-induced disorders from Last 3 Months or Most Recently Relevant to Health Maintenance Results * XR PAIN CLINIC C-ARM (05/27/2025 9:08 AM CDT) Narrative Radiology, Technologist - 05/27/2025 9:08 AM CDT This report does not contain a radiologist's interpretation. Please review associated procedure and/or operative report. us Gayatri Sarkar MD GENERAL IMAGING Final Result * CT CHEST WO CONT LOW DOSE (02/23/2023 12:00 AM CDT) Anatomical Region Laterality Modality Chest Computed Tomogra phy 02/23/2023 us Trey Williamson DO CT Final Resu lt * Colonoscopy ( BLOW MOLDING MACHINE OPERATOR) Narrative [facility] TO EPIC CONVERSION - BLOW MOLDING MACHINE OPERATOR Documented hx of procedure Procedure Note Amos Smart MD - 07/28/2018 Documented hx of procedure us Generic Conversion Md SMART GI PROCEDURE ORDERABLES Final Result [facility] TO EPIC CONVERSION from Last 3 Months or Most Recently Relevant to Health Maintenance Insurance [id number] Care Teams Pulp Press Tender Relationship Specialty Start Date End Date Per Garza MD [address] [facility] [address] [place] [address] PCP - General FAMILY PRACTICE 04/18/19
--- OUTSIDE RECORDS SUMMARY | 2025-07-09 00:17 | XMS_ITS | Encounter Summary ---
Author Organization [facility] Address On license of [facility] [place] [address] Care Team Providers Care Passenger Booking Clerk Name Role Phone Charlie Machuca MD Primary Care Provider [phone] Sebastien Boone MD Primary Care Provider [phone] Per Garza MD Primary Care Provider [phone] Encounter Details Date Type Department Care Team (Late st Contact Info) Description 05/07/2018 Abstract [facility] Conversion Sebastien Boone MD [address] [address] Social History Tobacco Use Types Packs/Day Years Used Date Smoking Tobacco: Never Assessed Sex and Gender Information Value Date Recorded Sex Assigned at Male 12/05/2018 4:58 PM CDT Legal Sex Male 4:58 PM CDT Gender Identity Male 12/05/2018 4:58 PM CDT Sexual Orientation Straight 12/05/2018 4: 58 PM CDT documented as of this encounter Miscellaneous Notes * Letter - Sebastien Boone MD - 05/07/2018 12:00 AM CDT 05-07-2018 , Familia Sanchez [address] [place] [address] : 1960 Lab Order: CMP , Lipid profile I10 Essential (primary) hypertension Fasting [x] Non-Fasting [] Normal [x] Stat [] Electronically Signed By: Sebastien Boone MD BLOWER documented in this encounter Plan of Treatment Upcoming Encounters Date Type Department Care Team (Late st Contact Info) Description 07/15/2025 3:00 PM CDT [facility] [address] [facility], [address] [place] [address] Nikky Morton APRN [address] [place] [address] 10/05/2025 9:00 AM GOLD BLOWER Office Visit [facility] [address] [place] [address] Per Garza MD [address] [facility] [address] [place] [address] 03/31/2026 8:20 AM CDT [facility] [address] [facility] [place] [address] Trey Williamson DO 3 [facility] [address] [place] [address] documented as of this encounter Visit Diagnoses Not on filedocumented in this encounter Additional Health Concerns Infection Onset Date Last Indicated Resolved Time COVID-19 Rule Out 03/17/2020 03/17/2020 03/18/2020 11:36 AM CDT COVID-19 Rule Out 01/06/2024 01/06/2024 01/06/2024 10:11 AM CDT documented as of this encounter Care Teams Passenger Booking Clerk Relationship Specialty Start Date End Date Charlie Machuca MD PCP - General FAMILY PRACTICE 07/26/18 09/24/18 Sebastien Boone MD PCP - General FAMILY PRACTICE 09/25/18 04/17/19 Per Garza MD [address] [email or web address] [address] [place] [address] PCP - General FAMILY PRACTICE 04/18/19 documented as of this encounter
--- OUTSIDE RECORDS SUMMARY | 2025-07-09 00:18 | XMS_ITS | Encounter Summary ---
Author Organization [facility] Address [address] [place] [address] Care Team Providers Care Worker'S Compensation Claims Examiner Name Role Phone Per Garza MD Primary Care Provider [phone] Encounter Details Date Type Department Care Team (Late st Contact Info) Description 05/02/2024 [employer] Message [facility] [address] [place] [address] Per Garza MD [address] [place] [address] MRIs from January Social History Tobacco Use Types Packs/Day Years [...] Description 07/15/2025 3:00 PM CDT Office Visit [facility] Mult[facility]pecialty Care - [facility] [address] [place] [address] Nikky Morton APRN [address] [place] [address] 10/05/2025 9:00 AM MUD ANALYSIS OPERATOR Office Visit [facility] [address] [place] [address] Per Garza MD [address] [facility] [address] [place] [address] 03/31/2026 8:20 AM CDT [facility] [address] [place] [address] Trey Williamson DO [address] [facility] [address] [place] [address] documented as of this encounter Visit Diagnoses Not on filedocumented in this encounter Additional Health Concerns Assessment Noted Time PHQ-9 Depression Total Score: 0 11/25/19 22 7:36 AM MUD ANALYSIS OPERATOR documented as of this encounter Care Teams Worker'S Compensation Claims Examiner Relationship Specialty Start Date End Date Per Garza MD [address] [facility] [address] [place] [address] PCP - General FAMILY PRACTICE 04/18/19 documented as of this encounter
--- OUTSIDE RECORDS SUMMARY | 2025-07-09 00:18 | XMS_ITS | Encounter Summary ---
Author Organization [facility] Address [facility] [place] [address] Care Team Providers Care Costume Mistress Name Role Phone Per Garza MD Primary Care Provider [phone] Encounter Details Date Type Department Care Team (Late Contact Info) Description 01/25/2022 Lobster Message [address] [id number] Erika, [facility] Provider Omeprazole Dose Social History Tobacco Use Types Packs/Day Years Used Date Smoking Tobacco: Former Cigarettes 2016 Smokeless Tobacco: Never Alcohol Use Standard Drinks/Week Comments Yes 23.3 (1 standard drink = 0.6 oz pure alcohol) 2-3 beers daily AUDIT-C Answer Date Recorded Frequency of Alcohol Consumption Never 07/31/2018 Average Number of Drinks Not on file 018 Frequency of Binge Drinking Not on file 03/2018 PHQ-2 Answer Date Recorded PHQ-2 Score - If the patient scores above 3, please move on to questions 3-9 0 01/11/2022 Sex and Gender Information Value Date Recorded Sex Assigned at Male 12/05/2018 4:58 PM CDT Legal Sex Male 4:58 PM CDT Gender Identity Male 12/05/2018 4:58 PM CDT Sexual Orientation Straight 12/05/2018 4: 58 PM CDT COVID-19 Exposure Response Date Recorded In the last 10 days, have yo u been in contact with someone who was confirmed or suspected to have Coronavirus/COVID-19? No / Unsure 01/11/2022 8:20 AM CDT documented as of this encounter Plan of Treatment Upcoming Encounters Date Type Department Care Team (Late Contact Info) Description 07/15/2025 3:00 PM CDT Office Visit [facility] - [facility] [address] [facility], [address] [place] [address] Selene Nikkyyuval Roth APRN [address] [place] [address] 10/05/2025 9:00 AM CAGE SUPERVISOR Office Visit [facility] [address] [place] [address] Per Garza MD [address] [facility] [address] [place] [address] 03/31/2026 8:20 AM CDT [facility] [address] [facility] [place] [address] Trey Williamson DO [address] [facility] [address] [place] [address] documented as of this encounter Visit Diagnoses Not on filedocumented in this encounter Additional Health Concerns Infection Onset Date Last Indicated Resolved Time COVID-19 Rule Out 01/06/2024 01/06/2024 01/06/2024 10:11 AM CDT Assessment Noted Time PHQ-9 Depression Total Score: 0 11/25/19 7:36 AM CAGE SUPERVISOR documented as of this encounter Care Teams Costume Mistress Relationship Specialty Start Date End Date Per Garza MD [address] [facility] [address] [place], [place] [address] PCP - General FAMILY PRACTICE 04/18/19 documented as of this encounter
--- OUTSIDE RECORDS SUMMARY | 2025-07-09 00:18 | XMS_ITS | Encounter Summary ---
Author Organization [facility] Address [facility] [place] [address] Care Team Providers Care Network Director Name Role Phone Per Garza MD Primary Care Provider [phone] Encounter Details Date Type Department Care Team (Late Contact Info) Description 03/12/2020 Prep for Procedure [address] [address] Phan Prado MD [address] [facility] [address] [place] [phone] Social History Tobacco Use Types Packs/Day Years Used Date Smoking Tobacco: Former Cigarettes [id number] Smokeless Tobacco: Never Alcohol Use Standard Drinks/Week Comments Yes 0 (1 standard drink = 0.6 oz pur e alcohol) 2-3 beers daily AUDIT-C Answer Date Recorded Frequency of Alcohol Consumption Never 07/31/2018 Average Number of Drinks Not on file 018 Frequency of Binge Drinking Not on file 03/2018 Sex and Gender Information Value Date Recorded Sex Assigned at Male 12/05/2018 4:58 PM CDT Legal Sex Male 4:58 PM CDT Gender Identity Male 12/05/2018 4:58 PM CDT Sexual Orientation Straight 12/05/2018 4: 58 PM CDT COVID-19 Exposure Response Date Recorded In the last month, have you been in contact with someone who was confirmed or suspected to have Coronavirus / COVID-19? No / Unsure 03/05/2020 3:57 PM CDT documented as of this encounter Plan of Treatment Upcoming Encounters Date Type Department Care Team (Late Contact Info) Description 07/15/2025 3:00 PM CDT Office Visit [facility] - [facility] 3 [facility], [address] [place] [address] Nikky Morton APRN [address] [place] [address] 10/05/2025 9:00 AM TICKETING CLERK Office Visit [facility] [address] [place] [address] Per Garza MD [address] [facility] [address] [place] [address] 03/31/2026 8:20 AM CDT [facility] [address] [facility] [place] [address] Trey Williamson DO 3 [facility] [address] [place] [address] documented as of this encounter Visit Diagnoses Diagnosis Pre-op testing- Primary Preoperative examination, unspecified documented in this encounter Additional Health Concerns Infection Onset Date Last Indicated Resolved Time COVID-19 Rule Out 03/17/2020 03/17/2020 03/18/2020 11:36 AM CDT COVID-19 Rule Out 01/06/2024 01/06/2024 01/06/2024 10:11 AM CDT documented as of this encounter Care Teams Network Director Relationship Specialty Start Date End Date Per Garza MD [address] [facility] [address] [place] [address] PCP - General FAMILY PRACTICE 04/18/19 documented as of this encounter
--- OUTSIDE RECORDS SUMMARY | 2025-07-09 00:18 | XMS_ITS | Encounter Summary ---
Author Organization [facility] Address [address] [place] [address] Care Team Providers Care Vb Net Programmer Name Role Phone Per Garza MD Primary Care Provider [phone] Encounter Details Date Type Department Care Team (Late st Contact Info) Description 04/15/2024 HALSCIONt Message [facility] [address] [place], [place] [id number] Per Garza MD [address] [address] Foot itching Social History Tobacco Use Types Packs/Day Years [...] Progress Notes * Nicole Gutierrez RN - 04/15/2024 5:13 PM CDT We last filled in 2020. Ok to fill or recommend appt? documented in this encounter Plan of Treatment Upcoming Encounters Date Type Department Care Team (Late st Contact Info) Description 07/15/2025 3:00 PM CDT [facility] [address] [facility], [address] [place] [address] Nikky Morton, SHEET ROCK INSTALLER [address] [facility] [place] [address] 10/05/2025 9:00 AM ADJUNCT PSYCHOLOGY INSTRUCTOR Office Visit [facility] [address] [place] [address] Per Garza MD [address] [facility] [address] [place] [address] 03/31/2026 8:20 AM CDT Office Visit [facility] [address] [facility] [address] [facility] [place] [address] Trey Williamson DO 3 [facility] [address] [place] [address] documented as of this encounter Visit Diagnoses Not on filedocumented in this encounter Additional Health Concerns Assessment Noted Time PHQ-9 Depression Total Score: 0 11/25/19 7:36 AM ADJUNCT PSYCHOLOGY INSTRUCTOR documented as of this encounter Care Teams Vb Net Programmer Relationship Specialty Start Date End Date Per Garza MD [address] [facility] [address] [place] [address] PCP - General FAMILY PRACTICE 04/18/19 documented as of this encounter
--- OUTSIDE RECORDS SUMMARY | 2025-07-09 00:18 | XMS_ITS | Encounter Summary ---
Author Organization [facility] Address [address] [place] [address] Care Team Providers Care Coat Tailor Name Role Phone Charlie Machuca MD Primary Care Provider [phone] Sebastien Boone MD Primary Care Provider [phone] Per Garza MD Primary Care Provider [phone] Encounter Details Date Type Department Care Team (Late st Contact Info) Description 12/21/2015 Abstract [facility] Clinics Conversion Md, Generic Conversion, Social History Tobacco Use Types [...] Description 07/15/2025 3:00 PM CDT Office Visit [facility] - [facility] 3 [facility], [address] [place] [address] Nikky Morton APRN 3 [facility] [address] [place] [address] 10/05/2025 9:00 AM FILM EXAMINER Office Visit [address] [address] Per Garza MD [address] [place] [address] 03/31/2026 8:20 AM CDT Office Visit [facility] - [facility] [address] [place] [address] Trey Williamson DO [address] [facility] [address] [place] [address] documented as of this encounter Visit Diagnoses Not on filedocumented in this encounter Additional Health Concerns Infection Onset Date Last Indicated Resolved Time COVID-19 Rule Out 03/17/2020 03/17/2020 03/18/2020 11:36 AM CDT COVID-19 Rule Out 01/06/2024 01/06/2024 01/06/2024 10:11 AM CDT documented as of this encounter Care Teams Coat Tailor Relationship Specialty Start Date End Date Charlie Machuca MD PCP - General FAMILY PRACTICE 07/26/18 09/24/18 Sebastien Boone MD PCP - General FAMILY PRACTICE 09/25/18 04/17/19 Per Garza MD [address] [place] [address] PCP - General FAMILY PRACTICE 04/18/19 documented as of this encounter
--- OUTSIDE RECORDS SUMMARY | 2025-07-09 00:18 | XMS_ITS | Encounter Summary ---
Author Organization [facility] Address [address] [place] [address] Care Team Providers Care Occupational Health Nursing Director Name Role Phone Charlie Machuca MD Primary Care Provider [phone] Sebastien Boone MD Primary Care Provider [phone] Per Garza MD Primary Care Provider [phone] Encounter Details Date Type Department Care Team (Late st Contact Info) Description 12/17/2015 Abstract [facility] Clin[facility] Conversion Md, Generic Conversion, Social History [...] Description 07/15/2025 3:00 PM CDT Office Visit [facility] Care - [facility] [address] [facility], [address] [place] [address] Nikky Morton APRN 3 [facility] [address] [place] [address] 10/05/2025 9:00 AM MEDIA ANALYST Office Visit [address] [address] Per Garza MD [address] [place] [address] 03/31/2026 8:20 AM CDT Office Visit [facility] Mult[facility]pec[facility]ty Care - [facility] [address] [facility] [facility] [address] [place] [address] Trey Williamson DO [address] [facility] [address] [place] [address] documented as of this encounter Visit Diagnoses Not on filedocumented in this encounter Additional Health Concerns Infection Onset Date Last Indicated Resolved Time COVID-19 Rule Out 03/17/2020 03/17/2020 03/18/2020 11:36 AM CDT COVID-19 Rule Out 01/06/2024 01/06/2024 01/06/2024 10:11 AM CDT documented as of this encounter Care Teams Occupational Health Nursing Director Relationship Specialty Start Date End Date Charlie Machuca MD PCP - General FAMILY PRACTICE 07/26/18 09/24/18 Sebastien Boone MD PCP - General FAMILY PRACTICE 09/25/18 04/17/19 Per Garza MD [address] [place] [address] PCP - General FAMILY PRACTICE 04/18/19 documented as of this encounter
--- OUTSIDE RECORDS SUMMARY | 2025-07-09 00:18 | XMS_ITS | Clinical Summary ---
Author Organization [facility] Address [facility] [place] [address] Care Team Providers Care Food Service Aide Name Role Phone Per Garza MD Primary Care Provider + Allergies Active Allergy Reactions Criticality Noted Date Comments Ciprofloxacin Rash Medium 03/11/2020 rash Fluocinolone Hives,Rash Medium 12/01/2015 Medications tamsulosin (FLOMAX) 0.4 mg extended release capsule 03/07/2021 Active omeprazole (PriLOSEC) 40 mg capsule 02/25/2021 Active lisinopriL (PRINIVIL,ZESTRIL) 10 mg tablet 02/21/2021 Active atorvastatin (LIPITOR) 20 mg tablet 04/05/2021 Active Active Problems Problem Noted Date Diagnosed Date Rotator cuff impingement syndrome of right shoul jessica 05/10/2021 Social History Tobacco Use Types Packs/Day Years Used Date Smoking Tobacco: Never Assessed Sex and Gender Information Value Date Recorded Sex Assigned at Not on file Legal Sex Male 10:21 PM AUTO COLLISION REPAIR INSTRUCTOR Gender Identity Not on file Sexual Orientation Not on file Obstetrics History Last Filed Vital Signs Vital Sign Reading Time Taken Comments Blood Pressure - - Pulse - - Temperature - - Respiratory Rate - - Oxygen Saturation - - Inhaled Oxygen Concentration - - Weight 77.1 kg (170 lb) 05/10/2021 9:54 AM CDT Height 175.3 cm (5' 9) 05/10/2021 9:54 AM CDT Body Mass Index 25.1 05/10/2021 9:54 AM CDT Plan of Treatment Not on file Insurance [facility] [place] [id number] Care Teams Food Service Aide Relationship Specialty Start Date End Date Per Garza MD [address] [facility] [place] [address] PCP - General Family Medicine 02/17/21
--- OUTSIDE RECORDS SUMMARY | 2025-07-09 00:18 | XMS_ITS | Encounter Summary ---
Author Organization [facility] Address [address] [place] [address] Care Team Providers Care Drop Wire Aligner Name Role Phone Per Garza MD Primary Care Provider [phone] Encounter Details Date Type Department Care Team (Late st Contact Info) Description 09/29/2024 SyncroPhi Systemst Message [facility] [address] [place] [address] Per Garza MD [address] [place] [address] MRA of neck Social History Tobacco Use Types Packs/Day Years [...] Visit [facility] - [facility] [address] [facility] [address] [place] [address] Nikky Morton APRN [address] [place] [address] 10/05/2025 9:00 AM WOODWORKING MACHINE SETTER Office Visit [facility] [address] [place] [address] Per Garza MD [address] [facility] [address] [place] [address] 03/31/2026 8:20 AM CDT [facility] [address] [facility] [address] [place] [address] Trey Williamson DO [address] [facility] [address] [place] [address] documented as of this encounter Visit Diagnoses Not on filedocumented in this encounter Additional Health Concerns Assessment Noted Time PHQ-9 Depression Total Score: 0 11/25/19 22 7:36 AM WOODWORKING MACHINE SETTER documented as of this encounter Care Teams Drop Wire Aligner Relationship Specialty Start Date End Date Per Garza MD [address] [facility] [address] [place] [address] PCP - General FAMILY PRACTICE 04/18/19 documented as of this encounter
--- OUTSIDE RECORDS SUMMARY | 2025-07-09 00:18 | XMS_ITS | Encounter Summary ---
Author Organization [facility] Address [facility]ly [facility] [place] [address] Care Team Providers Care Cytology Laboratory Manager Name Role Phone Per Garza MD Primary Care Provider [phone] Encounter Details Date Type Department Care Team (Late Contact Info) Description 10/17/2023 Muzzleyt Message Enc [address], [address] [place] [address] [facility] Provider Referral on MRI Social History Tobacco Use Types Packs/Day Years [...] Date Recorded Patient Health Questionnaire-2 Score 0 07/26/2023 Sex and Gender Information Value Date Recorded Sex Assigned at Male 12/05/2018 4:58 PM CDT Legal Sex Male 4:58 PM CDT Gender Identity Male 12/05/2018 4:58 PM CDT Sexual Orientation Straight 12/05/2018 4: 58 PM CDT documented as of this encounter Plan of Treatment Upcoming Encounters Date Type Department Care Team (Late Contact Info) Description 07/15/2025 3:00 PM CDT [facility] [address] [place] [address] Nikky Morton APRN [address] [address] [place] [address] 10/05/2025 9:00 AM ELECTRO MECHANICAL ASSEMBLER Office [facility] [address] [place] [address] Per Garza MD [address] [place] [address] 03/31/2026 8:20 AM CDT Office Visit [facility] - [facility] [address] [place] [address] Trey Williamson DO [address] [facility] [address] [place] [address] documented as of this encounter Visit Diagnoses Not on filedocumented in this encounter Additional Health Concerns Infection Onset Date Last Indicated Resolved Time COVID-19 Rule Out 01/06/2024 01/06/2024 01/06/2024 10:11 AM CDT Assessment Noted Time PHQ-9 Depression Total Score: 0 11/25/19 22 7:36 AM ELECTRO MECHANICAL ASSEMBLER documented as of this encounter Care Teams Cytology Laboratory Manager Relationship Specialty Start Date End Date Per Garza MD [address] [place] [address] PCP - General FAMILY PRACTICE 04/18/19 documented as of this encounter
--- OUTSIDE RECORDS SUMMARY | 2025-07-09 00:18 | XMS_ITS | Encounter Summary ---
Author Organization [facility] Address [facility] [place] [address] Care Team Providers Care Coconut Candy Maker Name Role Phone Charlie Machuca MD Primary Care Provider [phone] Sebastien Boone MD Primary Care Provider [phone] Per Garza MD Primary Care Provider [phone] Encounter Details Date Type Department Care Team (Late st Contact Info) Description 12/01/2015 Abstract [facility] [address] [place] [address] , Generic Conversion, Social History Tobacco Use [...] Description 07/15/2025 3:00 PM CDT Office Visit [facility] - [facility] [address] [facility], [address] [place] [address] Nikky Morton APRN 3 [facility] [address] [place] [address] 10/05/2025 9:00 AM SASH FINISHER Office Visit [facility] [address] [place] [address] Per Garza MD [address] [place] [address] 03/31/2026 8:20 AM CDT Office Visit [facility] Care - [facility] [address] [place] [address] Trey Williamson DO [address] [facility] [address] [place] [address] documented as of this encounter Visit Diagnoses Not on filedocumented in this encounter Additional Health Concerns Infection Onset Date Last Indicated Resolved Time COVID-19 Rule Out 03/17/2020 03/17/2020 03/18/2020 11:36 AM CDT COVID-19 Rule Out 01/06/2024 01/06/2024 01/06/2024 10:11 AM CDT documented as of this encounter Care Teams Coconut Candy Maker Relationship Specialty Start Date End Date Charlie Machuca MD PCP - General FAMILY PRACTICE 07/26/18 09/24/18 Sebastien Boone MD PCP - General FAMILY PRACTICE 09/25/18 04/17/19 Per Garza MD [address] [place] [address] PCP - General FAMILY PRACTICE 04/18/19 documented as of this encounter
--- OUTSIDE RECORDS SUMMARY | 2025-07-09 00:18 | XMS_ITS | Encounter Summary ---
Author Organization [facility] Address [address] [place] [address] Care Team Providers Care Addictions Recovery Specialist Name Role Phone Per Garza MD Primary Care Provider [phone] Encounter Details Date Type Department Care Team (Late st Contact Info) Description 09/04/2024 Temnost Message [facility] [address] [place] [address] Per Garza MD [address] [place] [address] MRA of head and neck Social History Tobacco Use Types Packs/Day Years Used Date Smoking Tobacco: Former Cigarettes 7 - 2016 Passive Smoke Exposure: Past Smokeless [...] Description 07/15/2025 3:00 PM CDT Office Visit [facility] Care - [facility] [address] [facility] [address] [facility] [address] [place] [address] Nikky Morton APRN [address] [address] [place] [address] 10/05/2025 9:00 AM CREDIT PROCESSOR Office [facility] [address] [place] [address] Per Garza MD 9401 [facility] [address] [place] [address] 03/31/2026 8:20 AM CDT [facility] [address] [facility] [address] [place] [address] Trey Williamson DO [address] [facility] [address] [place] [address] documented as of this encounter Visit Diagnoses Not on filedocumented in this encounter Additional Health Concerns Assessment Noted Time PHQ-9 Depression Total Score: 0 11/25/19 22 7:36 AM CREDIT PROCESSOR documented as of this encounter Care Teams Addictions Recovery Specialist Relationship Specialty Start Date End Date Per Garza MD [address] [facility] [address] [place] [address] PCP - General FAMILY PRACTICE 04/18/19 documented as of this encounter
--- NOTE | 2025-07-09 06:24 | WPDHPUPDATE1 ---
History and Physical Update Update Date/Time: 07/09/25 06:24 History and Physical has been reviewed, including an updated exam of the patient. There are NO changes in the patient's condition. Risks, benefits, and alternatives have been discussed and questions answered. Patient agrees to proceed with procedure.
[2025-07-09 07:58] VITALS: BP 126/65; PULSE 83; RESP 16; TEMP 36.3; O2SAT 98
[2025-07-09] MEDS: LACTATED RINGERS 1,000 ML 30 ML IV CONT (08:15)
--- NOTE | 2025-07-09 08:50 | WPDANESEPPF ---
Anes - Initial Pre Proc Eval Procedure: Operation Date: 07/09/25 09:45 Proposed Procedures p Trans Rectal Fusion Guided Prostate Biopsy - Jeremie Soria MD Date/Time: 07/09/25 08:50 Surgeon: Jeremie Soria MD Pre Op Diagnosis: elevated PSA Patient Data Age: 65 Gender: M Height: 1.75 m Weight: 82.8 kg Last Vital Signs Temp 36.3 C L 07/09/25 07:58 Pulse 83 07/09/25 07:58 Resp 16 07/09/25 07:58 BP 126/65 07/09/25 07:58 Pulse Ox 98 07/09/25 07:58 O2 Del Method Room Air 07/09/25 07:58 Allergies Allergy/AdvReac Type Severity Reaction Status Date / Time ciprofloxacin (From Cipro) Allergy Severe Hives Verified 07/09/25 08:18 Home Medications ?Medication ?Instructions ?Recorded ?Confirmed ?Type ascorbic acid (vitamin C) 500 mg 500 mg PO DAILY 07/02/25 07/09/25 History tablet (C-500) aspirin 81 mg tablet,delayed 81 mg PO DAILY 07/02/25 07/09/25 History release (Adult Low Dose Aspirin) atenolol 25 mg tablet 25 mg PO DAILY 07/02/25 07/09/25 History atorvastatin 40 mg tablet 40 mg PO QPM 07/02/25 07/02/25 History celecoxib 200 mg capsule 200 mg PO DAILY 07/02/25 07/09/25 History gabapentin 300 mg capsule 300 mg PO Q8H 07/02/25 07/09/25 History lisinopril 20 mg tablet 40 mg PO DAILY 07/02/25 07/09/25 History multivitamin (Daily Multi-Vitamin 1 tablet PO DAILY 07/02/25 07/09/25 History tablet) omega 2-yan-tus-fish oil 1,200 mg 1 cap PO DAILY 07/02/25 07/09/25 History (144 mg-216 mg) capsule (Fish Oil) omeprazole 20 mg capsule,delayed 20 mg PO DAILY 07/02/25 07/09/25 History release tadalafil 5 mg tablet 5 mg PO DAILY 07/02/25 07/02/25 History vitamin E 268 mg (400 unit) capsule 268 mg PO DAILY 07/02/25 07/09/25 History Patient hx anesthesia problems: none Family hx anesthesia problems: none Results Review: All pre-operative results and documents have been reviewed as part of the pre-operative evaluation. [facility] Past Medical History Medical History (Updated 07/09/25 @ 08:50 by Juan C Stack DO) Hyperlipidemia Hypertension Social History Social History Smoking packs per day: 1 Smoking cigarettes per day: 20.0 Years smoked: 35 Smoking pack-years: 35.00 Smoking status: Former smoker Tobacco type: cigarettes Smoking end date: 07/02/17 Alcohol intake: current Drinks per week: 20 Living arrangements: with roommate(s) Spiritual care concerns: No Anes - Eval Final PreProcedure Day of Procedure 07/09/25 08:50 Patient weight: overweight Heart: regular rate and rhythm Lungs: clear to auscultation Airway: Mallampati scale class II Neurological: alert and oriented Last oral intake: >/= 8 hours ASA classification: III Emergent: no Anesthetic plan: proceed Anesthesia type and monitoring: general GIVS and standard monitoring Results Review: All pre-operative results and documents have been reviewed as part of the pre-operative evaluation. Informed Consent: The patient's anesthetic plan and its attendant risks and benefits were discussed with the patient/family/POA. Questions were solicited and answers provided to the satisfaction of the patient/family/POA.
[2025-07-09] MEDS: cefTRIAXone 1 GM in SODIUM CHLORIDE 0.9% IV 50 ML 100 ML IVPB (09:30)
--- NOTE | 2025-07-09 09:34 | S_PTH ---
PATIENT: Familia Sanchez LOC: [facility] U#:[id number] AGE/SX: 65/M ROOM: RE07/09/[address]: Jeremie Soria MD : 1960 BED: DIS: 07/09/2025 SPEC #: [id number] RECD: 07/09/25 11:04 STATUS: AVIVA RE #: [id number] LIBBY: 07/09/25 09:[address]: Jeremie Soria DEPT: [facility] Surgical RECD BY: Emani Gonzalez ENTERED: 07/09/25 11:05 SP TYPE: Surgical OTHR DR: Per GarzaMD Tissues: A - Prostate Bx B - Prostate Bx C - Prostate Bx D - Prostate Bx E - Prostate Bx F - Prostate Bx G - Prostate Bx H - Prostate Bx I - Prostate Bx J - Prostate Bx K - Prostate Bx L - Prostate Bx M - Prostate Bx N - Prostate Bx Procedures: Unstained Slides Hematoxylin and Eosin Stain Prostate Biopsy
[2025-07-09 09:53] VITALS: BP 120/65; PULSE 55; RESP 20
--- NOTE | 2025-07-09 09:56 | W.PM.PROC2 ---
Procedure Note - Detailed Date of Procedure 07/09/25 Pre-op Diagnosis Elevated PSA Post-op Diagnosis Same Procedure Performed UroNav prostate biopsy Surgeon Jeremie Soria MD Anesthesia MAC Description of Procedure Patient is brought to the operative suite where he is positioned in the left lateral position. Systemic sedation is administered per the anesthesia department. Surgical time-out is undertaken and it's verified the patient has received preoperative antibiotics. Transrectal ultrasonography is undertaken with a standard transrectal probe. The [employer] system is used to superimpose his previously obtained mpMRI prostate images on the real-time transrectal ultrasond images. Prostate volume is calculated at 30cc. On the previous mpMRI there are 2 regions of interest. Using the transrectal needle design for prostate biopsies 3 cores from each region of interest her obtain. We then proceeded with a standard 12 core prostate biopsy. Transrectal probe was removed and patient taken to recovery room having tolerated the procedure well. Blood loss was less than 10 cc.
[2025-07-09 10:20] VITALS: BP 151/72; PULSE 55; RESP 20
[2025-07-09 10:40] VITALS: BP 158/82; PULSE 65; RESP 20
== END 2025-07-09 10:46 | disposition home or self-care (01) ==
PROVIDERS: PCP Family Medicine Sports Medicine; Visit Provider Urology
PROC: (CPT 55700; principal; 2025-07-09 09:45)
DX: C61 Malignant neoplasm of prostate (principal); E78.5 Hyperlipidemia, unspecified; I10 Essential (primary) hypertension; Z79.82 Long term (current) use of aspirin; Z79.1 Long term (current) use of non-steroidal anti-inflammatories (NSAID); Z87.891 Personal history of nicotine dependence
CPT/HCPCS: 76872; 55700; G0416; J0696; J2003; J2704; J3010; J7120

== ENCOUNTER 2025-08-24 07:59 | Outpatient (CLI) | payer BC, SELFPAY ==
--- NOTE | ~2025-08-24 | MR_ITS ---
EXAMINATION: MR lumbar spine wo con DATE: 08/24/2025 08:21 INDICATION: Lumbar radiculopathy. TECHNIQUE: Magnetic resonance imaging (MRI) of the lumbar spine was performed without intravenous contrast. COMPARISON: Lumbar spine MRI 10/24/2023 FINDINGS: There is 3 mm retrolisthesis of L2 on L3. There is mild chronic anterior wedging of T11 and T12 vertebral bodies. There is moderately decreased disc height at L1-L2, severely decreased disc height at L2-L3, and moderately decreased disc height at L4-L5 and L5-S1. The distal spinal cord signal intensity is normal. The conus medullaris is at T12. The following disc levels are specifically discussed: L1-L2: The disc is bulging and has an annular fissure. There is moderate bilateral facet joint osteoarthritis. There is mild bilateral neural foraminal stenosis. There is mild central canal stenosis. L2-L3: The disc is bulging and has an annular fissure. There is moderate right and mild left facet joint osteoarthritis. There is mild bilateral neural foraminal stenosis. There is mild central canal stenosis. L3-L4: The disc is bulging. There is mild bilateral facet joint osteoarthritis. There is mild bilateral neural foraminal stenosis. There is mild central canal stenosis. L4-L5: The disc is bulging and has an annular fissure. There is severe bilateral facet joint osteoarthritis. There is moderate bilateral neural foraminal stenosis. There is mild central canal stenosis. L5-S1: The disc is bulging and has an annular fissure. There is moderate right and severe left facet joint osteoarthritis. There is mild bilateral neural foraminal stenosis. There is mild central canal stenosis. IMPRESSION: 1. Severe lumbar spondylosis, stable from 10/24/2023. Reviewed, dictated and finalized at location [facility]. [facility]
== END 2025-08-24 08:00 | disposition home or self-care (01) ==
PROVIDERS: PCP Nurse Practitioner; Visit Provider Nurse Practitioner
DX: M47.816 Spondylosis without myelopathy or radiculopathy, lumbar region (principal)
CPT/HCPCS: 72148